=== PATIENT | female | born 1990 | race American Indian/Alaskan Native ===

== ENCOUNTER 2017-10-18 15:49 | Emergency (ER) | payer SELFPAY ==
[2017-10-18] MEDS ORDERED: DUONEB *Not for PRN Use IH ONE ×2 (16:24→16:26)
[2017-10-18] MEDS ORDERED: DECADRON IM ONE (20:21)
[2017-10-18] MEDS ORDERED: PROVENTIL IH ONE (20:22)
--- NOTE | 2017-10-18 20:26 | Emergency Department Report ---
HPI - General Chief Complaint: Dyspnea/Respdistress Time Seen by Provider: 10/18/17 20:21 - HPI HPI: When he 7-year-old -[place] female with no past medical history comes in with complaint of shortness of breath coughing and wheezing times one month. She reports she is increase shortness of breath and wheezing now on door the day. Patient reports that she was treated for upper respiratory infection back in July but the cough has never really gone away. She does admit now that she is having nasal congestion and feels that is all in her chest she feels like she does not really 7 similar to this cough and wheezing and nasal congestion. She denies any fever no chills no nausea no vomiting. ED Past Medical Hx - Past Medical History Previous Medical History?: No - Surgical History Past Surgical History?: No - Social History Smoking Status: Never Smoker - Medications Home Medications: Home Medications Medication Instructions Recorded Confirmed Last Taken Type ALBUTEROL Inhaler [ProAir HFA 2 puff IH QID PRN 30 Days #1 10/18/17 Unknown Rx Inhaler] inhalation Dexchlorpheniram/Phenylephrine 1 each PO Q6H 5 Days #20 tab 10/18/17 Unknown Rx [Rymed Tablet] methylPREDNISolone [Medrol] 4 mg PO QDAY #1 tab.ds.pk 10/18/17 Unknown Rx ED Review of Systems ROS: Stated complaint: DIFFICULTY BREATHING Other details as noted in HPI Constitutional: denies: chills, fever Eyes: denies: eye pain, eye discharge, vision change ENT: congestion. denies: ear pain, throat pain Respiratory: cough, shortness of breath, SOB with exertion, wheezing Cardiovascular: denies: chest pain, palpitations Endocrine: no symptoms reported Gastrointestinal: denies: abdominal pain, nausea, diarrhea Genitourinary: denies: urgency, dysuria, discharge Musculoskeletal: denies: back pain, joint swelling, arthralgia Skin: denies: rash, lesions Neurological: denies: headache, weakness, paresthesias Psychiatric: denies: anxiety, depression Hematological/Lymphatic: denies: easy bleeding, easy bruising Physical Exam - Physical Exam Vital Signs: Vital Signs 10/18/17 10/18/17 10/18/17 16:01 16:28 16:46 Temperature 97.5 F L Pulse Rate 95 H Pulse Rate [ 115 H 103 H Posterior Bilateral Throughout] Respiratory 30 H Rate Respiratory 18 20 Rate [Posterior Bilateral Throughout] Blood Pressure 148/80 O2 Sat by Pulse 95 Oximetry Physical Exam: GENERAL: Alert and oriented x3, no apparent distress, Normal Gait, atraumatic. HEAD: Head is normocephalic and a-traumatic. EYES: Extra ocular muscles are intact. Pupils are equal, round, and reactive to light and accommodation. EARS: symetrical, atraumatic, non tender, ear canal clear and moderate cerumen, tympanic membrance non inflamed. gross auditory nml bilaterally. NOSE: Nose symetrical, Nontender,Nares appeared normal. MOUTH:Mouth is well hydrated and without lesions. Tonsils nonerythematous or swollen, Uvula midline, Tongue not elevated. Mucous membranes are moist. Posterior pharynx clear, no exudate or lesions. Patent airways. NECK: Supple. Non edematous, No lymphadenopathy or thyromegaly. LUNGS: Symetrical with respiration, No wheezing, no rales or crackles, CTAB. HEART: S1, S2 present, regular rate and rhythm without murmur, no rubs, no gallops. EXTREMITIES/MUSCULOSKELETAL: No cyanosis, clubbing, rash, lesions or edema. Full ROM bilaterally. UE/LE Pulses 2+ bilaterally. LE and UE 5+ strength bilaterally NEUROLOGIC: No focal Deficit, Cranial nerves II through XII are grossly intact. No loss of sensation, No facial droop, Negative rhomberg. PSYCHIATRIC: Mood is congruent with affect, denies suicidal or homicidal ideations. SKIN: Warm and dry, No lesions, No ulceration or induration present ED Course Vital Signs 10/18/17 10/18/17 10/18/17 16:01 16:28 16:46 Temperature 97.5 F L Pulse Rate 95 H Pulse Rate [ 115 H 103 H Posterior Bilateral Throughout] Respiratory 30 H Rate Respiratory 18 20 Rate [Posterior Bilateral Throughout] Blood Pressure 148/80 O2 Sat by Pulse 95 Oximetry ED Medical Decision Making - Radiology Data Patient's been evaluated by this provider fast track. Patient has had one round of Atrovent when she first entered triage. I have ordered another albuterol since she is still wheezing. I have also ordered dex milligrams IM. I will order a chest x-ray after have the urine test completed. Patient verbalized understanding Critical care attestation.: If time is entered above; I have spent that time in minutes in the direct care of this critically ill patient, excluding procedure time. ED Disposition Clinical Impression: URI, acute Disposition: DC-01 TO HOME OR SELFCARE Is pt being admited?: No Does the pt Need Aspirin: No Condition: Stable Instructions: Upper Respiratory Infection (ED), Reactive Airways Disease (ED) Additional Instructions: Take medication as prescribed. Follow up with your primary care provider I have listed one below. Prescriptions: ALBUTEROL Inhaler [ProAir HFA Inhaler] 2 puff IH QID PRN 30 Days #1 inhalation PRN Reason: Shortness Of Breath Dexchlorpheniram/Phenylephrine [Rymed Tablet] 1 each PO Q6H 5 Days #20 tab methylPREDNISolone [Medrol] 4 mg PO QDAY #1 tab.ds.pk Referrals: PRIMARY CARE, [Primary Care Provider] - 3-5 Days [facility] [Provider Group] - 3-5 Days Forms: Work/School Release Form(ED)
[2017-10-18 20:42] VITALS: BP 105/70
[2017-10-18 21:42] LABS: HCG Qualitative,Urine Negative (Negative)
--- NOTE | 2017-10-18 22:06 | XRay Report ---
FINAL REPORT EXAM: XR CHEST ROUTINE 2V HISTORY: shortness of breathing and wheezing TECHNIQUE: Two view chest PA and lateral PRIORS: None. FINDINGS: Cardiac and mediastinal contours are unremarkable. No focal pulmonary infiltrate is identified. No pleural fluid collection seen. Pulmonary vasculature is unremarkable. IMPRESSION: Negative two-view chest
== END 2017-10-18 22:17 | disposition home or self-care (01) ==
LOC: ED 15:49
DX: J06.9 Acute upper respiratory infection, unspecified (principal)
CPT/HCPCS: 71046; 81025; 94640; 96372; 99284; J1100

== ENCOUNTER 2017-11-23 17:06 | Emergency (ER) | payer SELFPAY ==
[2017-11-23 17:15] VITALS: BP 111/72
[2017-11-23] MEDS ORDERED: DUONEB *Not for PRN Use IH ONE ×2 (17:15→17:17)
== END 2017-11-23 20:40 | disposition left against medical advice (07) ==
LOC: ED 17:06
DX: R06.00 Dyspnea, unspecified (principal); Z53.21 Procedure and treatment not carried out due to patient leaving prior to being seen by health care provider
CPT/HCPCS: 94640